=== PATIENT | male | born 1960 | race African-American/Black ===

== ENCOUNTER 2020-10-07 20:12 | Inpatient (IN) | payer OTHER, SELFPAY ==
[~2020-10-07] VITALS: Ht 182.9 cm; Wt 88.5 kg
[2020-10-07 20:19] VITALS: BP_SYST 174
--- NOTE | 2020-10-07 20:47 | NUR ---
RECEIVED AND IN ROOM 5, PT ANXIOUS AND PACING
--- NOTE | 2020-10-07 20:56 | NUR ---
PMH KIDNEY TRANSPLANT 2.5 YEARS AGO. RECENT "GAS " DISCOMFORT. RESTLESS AND ANXIOUS
--- NOTE | 2020-10-07 21:17 | NUR ---
UA AND BLOOD OBTAINED
[2020-10-07 21:23] LABS: BILIRUBIN,URINE NEGATIVE (NEGATIVE); BLOOD, URINE 3+ (NEGATIVE); CLARITY/URINE CLEAR (CLEAR); COLOR,URINE STRAW (YELLOW); GLUCOSE,URINE NEGATIVE (NEGATIVE); KETONES,URINE NEGATIVE (NEGATIVE); LEUKOCYTE ESTERASE ,URINE NEGATIVE (NEGATIVE); NITRITE, URINE NEGATIVE (NEGATIVE); PH,URINE 6.5 (5.0-8.0); PROTEIN URINE 1+ (NEGATIVE); UROBILINOGEN,URINE 0.2 (0.2-1.0)
[2020-10-07 21:27] LABS: BASOPHILS % (AUTO) 0.4 % (0.0-2.0); EOSINOPHILS # (AUTO) 0.1 K/uL (0.0-0.4); EOSINOPHILS % (AUTO) 0.6 % (0.0-4.0); HEMATOCRIT 35.5 % (36-54); HEMOGLOBIN 12.8 g/dL (14.0-18.0); LYMPHOCYTES # (AUTO) 1.2 K/uL (1.0-5.5); LYMPHOCYTES % (AUTO) 12.4 % (20.5-51.5); MEAN CORPUSCULAR HEMOGLOBIN 29 pg (27-31); MEAN CORPUSCULAR HGB CONC 36 % (32-36); MEAN CORPUSCULAR VOLUME 81 fL (79.0-98.0); MONOCYTES # (AUTO) 0.8 K/uL (0.0-1.0); MONOCYTES % (AUTO) 7.9 % (1.7-9.3); NEUTROPHILS # (AUTO) 7.7 K/uL (1.8-7.7); NEUTROPHILS % (AUTO) 78.7 % (40.0-70.0); PLATELET COUNT (AUTO) 192 K/uL (130-430); RED BLOOD CELL COUNT(AUTO) 4.36 MIL/uL (4.2-6.2); RED CELL DISTRIBUTION WIDTH 13.3 % (9.0-15.0); WHITE BLOOD COUNT (AUTO) 9.8 K/uL (4.8-10.8)
[2020-10-07 21:33] LABS: RBC,URINE 0-3 /HPF (0-3); WBC,URINE 0-3 /HPF (0-3)
[2020-10-07 21:34] LABS: BACTERIA,URINE FEW /HPF (None Seen); CALCIUM OXALATE CRYSTALS,UR None Seen /HPF (None Seen); CALCIUM PHOSPHATE CRYSTALS,UR None Seen /HPF (None Seen); COARSE GRANULAR CASTS,URINE None Seen /LPF (None Seen); FINE GRANULAR CASTS,URINE None Seen /LPF (None Seen); HYALINE CASTS, URINE None Seen /LPF (None Seen); MUCUS,URINE None Seen /LPF (None Seen); OTHER CASTS, URINE None Seen /LPF (None Seen); OTHER CRYSTALS,URINE None Seen /HPF (None Seen); TRICHOMONAS,URINE None Seen /HPF (None Seen); TRIPLE PHOSPHATE CRYSTAL,UR None Seen /HPF (None Seen); URIC ACID CRYSTALS,URINE None Seen /HPF (None Seen); URINE AMORPHOUS PHOSPHATES None Seen /HPF (None Seen); URINE AMORPHOUS URATE None Seen /HPF (None Seen); WAXY CASTS,URINE None Seen /LPF (None Seen); YEAST,URINE None Seen /HPF (None Seen)
[2020-10-07 21:46] LABS: CALCIUM 8.9 mg/dL (8.4-11.0); CREATININE 1.5 mg/dL (0.55-1.30); POTASSIUM 5.3 mmol/L (3.5-5.1)
--- NOTE | 2020-10-07 21:48 | NUR ---
DR STRAUSS IN TO ASSESS
[2020-10-07] MEDS ORDERED: NACL 0.9% 1,000 ML IV ONE (22:00)
[2020-10-07 22:03] LABS: TOTAL BILIRUBIN 0.9 mg/dL (0.0-1.0)
[2020-10-07 22:04] LABS: ALBUMIN 3.7 g/dL (3.4-4.8)
--- NOTE | 2020-10-07 22:06 | NUR ---
COVID SWAB COLLECTED AND SENT TO LAB.
--- NOTE | 2020-10-07 22:12 | NUR ---
UPDATE TO [facility] [phone]
--- NOTE | 2020-10-07 22:25 | NUR ---
DR BYRNE IN TO ASSESS
[2020-10-07 22:42] LABS: BARBITURATE, URINE NEGATIVE (NEG <=200); BENZODIAZEPINE, URINE NEGATIVE (NEG <=150); COCAINE, URINE NEGATIVE (NEG <=150); METHAMPHETAMINES SCREEN,URINE NEGATIVE (NEG <=500); URINE AMPHETAMINE NEGATIVE (NEG <=500); URINE METHADONE NEGATIVE (NEG <=200)
[2020-10-07 22:43] LABS: CANNABINOID, URINE POSITIVE (NEG <=50); OPIATE, URINE NEGATIVE (NEG <=100); PHENCYCLIDINE SCREEN,URINE NEGATIVE (NEG <=25); UR TRICYCLIC ANTIDEPRESSANTS NEGATIVE (NEG <=300); URINE OXYCODONE SCREEN NEGATIVE (NEG <=100); URINE PROPOXYPHENE SCREEN NEGATIVE (NEG <=300)
[2020-10-07] MEDS ORDERED: LORazepam 2 MG/ML VIAL IVP ONE (22:45)
[2020-10-07 22:49] LABS: CALCIUM 9.1 mg/dL (8.4-11.0); CREATININE 1.4 mg/dL (0.55-1.30); POTASSIUM 5.3 mmol/L (3.5-5.1)
--- NOTE | 2020-10-07 23:00 | NUR ---
REPORT RECEIEVED FROM JONO HUYNH. SPOKE TO DAUGHTER AISHWARYA) [phone].
--- NOTE | 2020-10-07 23:30 | NUR ---
Patient will be admitted to care of [facility]. Admitted to TELE unit. PENDING ROOM ASSIGNMENT. Belongings list completed. Complete and up to date summary report printed. SBAR report to be given at bedside with opportunity for questions.
[2020-10-07] MEDS ORDERED: NACL 0.9% 1,000 ML IV SCH (23:45)
--- NOTE | 2020-10-08 00:25 | NUR ---
ADMISSION: The patient, VIET HAMILTON, 60 y/o, M admitted by KANDI VILLAR MD, was given written information regarding hospital policies, unit procedures and contact persons. Valuables were checked and pt was oriented to his room and surrounding.
--- NOTE | 2020-10-08 00:30 | NUR ---
Transfer to TELE via ACLS protocol. Licensed nurse present. IV present no signs or symptoms of infiltration.
--- NOTE | 2020-10-08 00:35 | NUR ---
PT INCONTINENT WITH LARGE AMOUNT OF YELLOWISH URINE. INCONTINENT CARE PROVIDED BY RN AND NETWORKING ADMINISTRATOR.
--- NOTE | 2020-10-08 00:39 | NUR ---
UPDATED REGARDING STAYING HERE AT THE HOSPITAL.
[2020-10-08 00:56] VITALS: BP_SYST 137
[2020-10-08] MEDS ORDERED: HYDROcodone/ACETAMIN 5-325 MG TAB (NORCO/ VICODIN) PO PRN (04:15)
[2020-10-08] MEDS ORDERED: HYDROcodone/ACETAMIN 10-325 MG TAB PO PRN (04:15)
[2020-10-08] MEDS ORDERED: NALOXONE HCL 0.4 MG/ML AMP (NARCAN) IVP PRN ×2 (04:15)
[2020-10-08] MEDS ORDERED: ACETAMINOPHEN 325 MG TABLET PO PRN ×2 (04:15→11:30)
[2020-10-08] MEDS ORDERED: ONDANSETRON HCL 4 MG/2 ML VIAL IVP PRN (04:15)
[2020-10-08] MEDS ORDERED: LORazepam 2 MG/ML VIAL IVP PRN (04:15)
--- NOTE | 2020-10-08 04:27 | NUR ---
PT TRANSFERRED FROM TELE TO MED/SURG PER MD'S ORDER. PHOTOENGRAVING FINISHER GIVEN TO HOTEL FRONT DESK CLERK.
[2020-10-08] MEDS: D5NS 1,000 ML IV SCH ×2 (04:37→17:44)
--- NOTE | 2020-10-08 06:30 | NUR ---
PT REMAINS DROWSY AND RESTING COMFORTABLY IN BED. NO RESPIRATORY DISTRESS NOTED. ALL PT'S NEEDS WERE ATTENDED TO. IVF IS INFUSING WELL IN . WILL ENDORSE TO DAY SHIFT NURSE.
[2020-10-08 07:40] VITALS: BP_SYST 129
--- NOTE | 2020-10-08 07:40 | NUR ---
OPENING NOTE Patient resting in the bed. No acute distress. Denied of pain. skin warm and dry to touch. IV intact to left hand, no redness, no swelling, no drainage. On D5 NS at 100ml/hr, infusing well. Discussed the safety issue, use call light when needs help, and plan of care, verbally understanding. Safety measure maintained. Call light within reached. Bed locked in low position, side rails up, bed alarm on. Will continue to monitor.
--- NOTE | 2020-10-08 08:15 | NUR ---
CONSULTATION PAGED/CALLED Reason for Consultation: HYPONATREMIA Person Who was Notified: YSABEL Consulting Physician: JAMES Pipe Fitter Welding Specialty: Ordering Physician: JIAN
--- NOTE | 2020-10-08 09:03 | NUR ---
CONSULTATION PAGED/CALLED Reason for Consultation: TRANSAMINITIS Person Who was Notified: VINCENT Consulting Physician: JESSI LOAN DOCUMENTS CLOSER Baggage Agent Specialty: GASTRO Ordering Physician: JIAN
--- NOTE | 2020-10-08 09:24 | NUR ---
CM note: late entry: faxed transfer ordered to network request and ED note, labs to [facility]/dept. Then called to notify rei Ledbetter by Ajay/ERICA.
--- NOTE | 2020-10-08 10:55 | NUR ---
HOME MED LIST Patient's daughter brought home med bottle but not completed per patient. Called to add the medication left at home.
--- NOTE | 2020-10-08 11:56 | NUR ---
LEAD INJECTION MOLD TECHNICIAN completed a letter of hospital admission for Pt. per request and delivered to Seasonal Sales Associate who will provide the letter to Pt.
[2020-10-08 12:11] VITALS: BP_SYST 149
[2020-10-08] MEDS ORDERED: VITD2000 PO (12:48)
[2020-10-08] MEDS ORDERED: LIP10 PO (12:48)
[2020-10-08] MEDS ORDERED: MAGN400T10 PO (12:48)
[2020-10-08] MEDS ORDERED: CALC0.253 PO (12:48)
[2020-10-08] MEDS ORDERED: LOSA25TA3 PO (12:48)
[2020-10-08] MEDS ORDERED: SODI650T PO (12:48)
[2020-10-08] MEDS ORDERED: CEL250 PO (12:48)
[2020-10-08] MEDS ORDERED: TAMS-11 PO (12:48)
[2020-10-08] MEDS ORDERED: PRED5TAB PO (12:48)
[2020-10-08] MEDS ORDERED: VITA-285 PO (12:48)
[2020-10-08 16:40] VITALS: BP_SYST 125
--- NOTE | 2020-10-08 16:45 | NUR ---
SABRA NAVARRO Received the magali from Sabra Navarro to update the patient's condition, lab and imaging result. Per Melanie requested faxed the US of abdomen result. . Will call back when bed available.
--- NOTE | 2020-10-08 17:25 | NUR ---
SEEN AND EXAMINED BY KANDI REYES.
--- NOTE | 2020-10-08 18:00 | NUR ---
RECEIVED CALL FROM MARGARET PINZON REGARDING THE CURRENT LAB RESULT. ELAINE PINZON NEEDS TO FAX THE BMP RESULT BEFORE ACCEPT THE PATIENT TO TRANSFER.
--- NOTE | 2020-10-08 18:25 | NUR ---
SEEN AND EXAMINED BY MIRLANDE GARDNER.
--- NOTE | 2020-10-08 18:52 | NUR ---
CLOSING NOTE Patient resting in the bed. No acute distress. Denied of pain. skin warm and dry to touch. IV intact to left hand, no redness, no swelling, no drainage. On D5 NS at 100ml/hr, infusing well. Discussed the safety issue, use call light when needs help, and plan of care, verbally understanding. Safety measure maintained. Call light within reached. Bed locked in low position, side rails up, bed alarm on. Will endorse to night nurse.
[2020-10-08 18:55] LABS: PROTHROMBIN TIME 10.2 SECS (9.5-12.5)
[2020-10-08 19:07] LABS: ALANINE AMINOTRANSFERASE 254 U/L (12-78); ALBUMIN 3.5 g/dL (3.4-4.8); ANION GAP 7 (5-15); ASPARTATE AMINOTRANSFERASE 662 U/L (10-37); CALCIUM 9.2 mg/dL (8.4-11.0); CHLORIDE 98 mmol/L (98-107); GLUCOSE 136 mg/dL (70-99); POTASSIUM 4.9 mmol/L (3.5-5.1); SODIUM SERUM 133 mmol/L (136-145); TOTAL BILIRUBIN 0.6 mg/dL (0.0-1.0); UREA NITROGEN, BLOOD 16 mg/dL (8-21)
[2020-10-08 19:09] LABS: GFR AFRICAN AMERICAN 57 mL/min (>90)
--- NOTE | 2020-10-08 19:25 | NUR ---
CHANGE OF SHIFT; endorsed by day shift for possible transfer to [facility]. pending lab result ordered, told to fax it to [facility] per pillowcase sewer. pt. came in for hyponatremia.
[2020-10-08 19:35] LABS: CREATINE KINASE MB 30.9 ng/mL (0-3.6)
--- NOTE | 2020-10-08 20:00 | NUR ---
NOTES: lab result, Na 133 faxed to [facility]. pt. checked, awake, alert, denies any discmfort. IVF infusing. moves all extremities. emptied urinal. informed pt. for possible tranfer to [facility].
[2020-10-08 20:13] VITALS: BP_SYST 112
[2020-10-08] MEDS: mycophenolate mofetiL 250 MG CAPSULE PO SCH (21:49)
[2020-10-08] MEDS: SODIUM BICARBONATE 650 MG TABLET PO SCH (21:50)
[2020-10-08] MEDS: MAGNESIUM OXIDE 400 MG TABLET PO SCH (21:50)
--- NOTE | 2020-10-08 22:00 | NUR ---
NOTES; Dean has not called back, charge nurse aware, due medications given. pt. needs attended.
[2020-10-09] MEDS ORDERED: D5W 1,000 ML IV SCH
--- NOTE | 2020-10-09 | NUR ---
NOTES: Dr. Cardona called , Na result earlier 133, informed her that pt. was suppose to transfer to [place] but complex case manager did not call, faxed them the result. Dr. Cardona ordered stat BMP and changed IVf to D 5 W @ 100 cc/hr. [facility] nurse Karen aware of the situation.
--- NOTE | 2020-10-09 00:05 | NUR ---
NOTES: called lab for the stat lab.
--- NOTE | 2020-10-09 00:30 | NUR ---
NOTES: called again lab to follow up on the order, saying the tech is in ER and will come to draw ELIOT. charge nurse made aware.
--- NOTE | 2020-10-09 00:50 | NUR ---
NOTES: jose skilled laborer here and [facility] lab. IVF changed.
[2020-10-09 01:13] LABS: CALCIUM 8.1 mg/dL (8.4-11.0); CREATININE 1.47 mg/dL (0.55-1.30); POTASSIUM 4.3 mmol/L (3.5-5.1)
[2020-10-09 01:22] VITALS: BP_SYST 135
--- NOTE | 2020-10-09 01:55 | NUR ---
NOTES: called Dr. Cardona for the result of BMP, particularly Na 124, order to change IV to NS @ 80 cc/hr.
[2020-10-09] MEDS ORDERED: NACL 0.9% 1,000 ML IV SCH (02:00)
--- NOTE | 2020-10-09 02:48 | NUR ---
NOTES: pt. voided per urinal and pill the urine and get himself wet and bed linen, TRANSFORMER SHOP SUPERVISOR changed. IV changed to NS @ 80cc./hr as ordered.
--- NOTE | 2020-10-09 04:30 | NUR ---
NOTES: pt. called and feels he wants to have a BM, stand by assist to the restroom but false alarm. pt. able to ambulate ok, no dizziness.
--- NOTE | 2020-10-09 06:40 | NUR ---
CLOSING NOTES; IVF patent, no complaints noted. due for lab draw. for further assistance. call light within reach. will endorse to incoming shift.
[2020-10-09 07:35] LABS: BASOPHILS % (AUTO) 0.7 % (0.0-2.0); EOSINOPHILS # (AUTO) 0.1 K/uL (0.0-0.4); EOSINOPHILS % (AUTO) 1.2 % (0.0-4.0); HEMATOCRIT 30.1 % (36-54); HEMOGLOBIN 10.7 g/dL (14.0-18.0); LYMPHOCYTES # (AUTO) 1.1 K/uL (1.0-5.5); LYMPHOCYTES % (AUTO) 25.8 % (20.5-51.5); MEAN CORPUSCULAR HEMOGLOBIN 30 pg (27-31); MEAN CORPUSCULAR HGB CONC 36 % (32-36); MEAN CORPUSCULAR VOLUME 83 fL (79.0-98.0); MONOCYTES # (AUTO) 0.6 K/uL (0.0-1.0); MONOCYTES % (AUTO) 13.4 % (1.7-9.3); NEUTROPHILS # (AUTO) 2.4 K/uL (1.8-7.7); NEUTROPHILS % (AUTO) 58.9 % (40.0-70.0); PLATELET COUNT (AUTO) 150 K/uL (130-430); RED BLOOD CELL COUNT(AUTO) 3.62 MIL/uL (4.2-6.2); RED CELL DISTRIBUTION WIDTH 13.1 % (9.0-15.0); WHITE BLOOD COUNT (AUTO) 4.1 K/uL (4.8-10.8)
[2020-10-09 07:48] LABS: CALCIUM 8.5 mg/dL (8.4-11.0); CREATININE 1.55 mg/dL (0.55-1.30); PHOSPHORUS 3.3 mg/dL (2.7-4.5); POTASSIUM 4.4 mmol/L (3.5-5.1); TOTAL BILIRUBIN 0.5 mg/dL (0.0-1.0)
[2020-10-09 08:00] VITALS: BP_SYST 111
[2020-10-09] MEDS ORDERED: CHOLECALCIFEROL (VITAMIN D3) 2,000 UNIT TABLET PO SCH (09:00)
[2020-10-09] MEDS ORDERED: LOSARTAN POTASSIUM 25 MG TABLET PO SCH (09:00)
[2020-10-09] MEDS ORDERED: TAMSULOSIN HCL 0.4 MG CAP PO SCH (09:00)
[2020-10-09] MEDS ORDERED: VITAMIN B COMPLEX 1 CAP/TAB PO SCH (09:00)
[2020-10-09] MEDS: SODIUM BICARBONATE 650 MG TABLET PO SCH ×2 (09:00→20:57)
[2020-10-09] MEDS: MAGNESIUM OXIDE 400 MG TABLET PO SCH ×2 (09:00→20:57)
[2020-10-09] MEDS ORDERED: calcitrioL 0.25 MCG CAPSULE PO SCH (09:00)
[2020-10-09] MEDS: mycophenolate mofetiL 250 MG CAPSULE PO SCH ×2 (09:00→20:57)
[2020-10-09] MEDS ORDERED: ATORVASTATIN 10 MG TABLET PO SCH (09:00)
[2020-10-09] MEDS ORDERED: predniSONE 5 MG TABLET PO SCH (09:00)
--- NOTE | 2020-10-09 09:28 | NUR ---
MARGARET note: s/w [facility] dept, f/u on the transfer request. Per Zuly , she will contact to call me back. Updated clinicals and resent the transfer order to fax # [phone] anne Caruso. Addendum: 10/09/20 at 1656 by Andreina Fermin RN Late entry: called to [facility] to f/u on the transfer decision: per ERICA Moss s/w the [place] transfer ctr x2/Gael , software configuration analyst said the case is being reviewed. No further transfer info received. -- madyd Molina made aware.
[2020-10-09 12:00] VITALS: BP_SYST 120
[2020-10-09 13:21] LABS: ALANINE AMINOTRANSFERASE 221 U/L (12-78); ALBUMIN 3.4 g/dL (3.4-4.8); ANION GAP 8 (5-15); ASPARTATE AMINOTRANSFERASE 449 U/L (10-37); CALCIUM 8.9 mg/dL (8.4-11.0); CHLORIDE 95 mmol/L (98-107); GLUCOSE 108 mg/dL (70-99); LIPASE 137 U/L (73-393); POTASSIUM 4.4 mmol/L (3.5-5.1); SODIUM SERUM 131 mmol/L (136-145); TOTAL BILIRUBIN 0.5 mg/dL (0.0-1.0); UREA NITROGEN, BLOOD 19 mg/dL (8-21)
[2020-10-09 14:33] LABS: CREATININE 1.55 mg/dL (0.55-1.30); GFR AFRICAN AMERICAN 59 mL/min (>90)
[2020-10-09 16:00] VITALS: BP_SYST 118
--- NOTE | 2020-10-09 19:10 | NUR ---
OPENING NOTES PATIENT RESTING, NO SIGNS OF DISTRESS AT THIS TIME. CALL LIGHT WITHIN REACH, PATIENT DEMONSTRATES PROPER CALL LIGHT USAGE THROUGHOUT SHIFT. BED LOCKED, BED AT LOWEST POSITION, BED LOCKED. FALL, RESPIRATORY, ASPIRATION, AND SAFETY PRECAUTIONS IN PLACE. PLAN OF CARE DISCUSSED WITH PATIENT. WILL CONTINUE TO MONITOR. WILL SPEAK TO PATIENT ABOUT MEDICATIONS AT BEDSIDE.
--- NOTE | 2020-10-09 20:00 | NUR ---
SPOKE TO PATIENT, PATIENT NERVOUS ABOUT HAVING PHARMACY MEDICAL TRANSCRIPTION RADIOLOGY MEDICATION AND POSSIBLY LOSING MEDICATIONS. EXPLANATION OF KEEPING AT MEDICATION EXPLAINED AND REASSURED PATIENT THAT DAUGHTER CAN MEDICAL TRANSCRIPTION RADIOLOGY MEDICATION IN THE MORNING.
[2020-10-09 20:23] LABS: CREATINE KINASE MB 10.6 ng/mL (0-3.6)
--- NOTE | 2020-10-09 20:39 | NUR ---
SPOKE TO MARY [phone], NOTIFIED OF THAT PATIENT'S TOTAL CREATININE KINASE IS STILL ABOVE 1000 AND CK-MB IS 10.6. MARY SAYS THAT SHE WILL NOTIFY THE DOCTORS AND FELLOW DELINQUENT TAX COLLECTOR ASSISTANT AND WILL CALL US BACK FOR UPDATES.
[2020-10-10] VITALS: BP_SYST 114
[2020-10-10 01:38] VITALS: BP_SYST 114
--- NOTE | 2020-10-10 02:00 | NUR ---
SPOKE TO JONO JAMA [phone], PRVIDED SBAR OF PATIENT. EVITA STATES THAT THEY WOULD LIKE TO KEEP THE IV ACCESS FOR PATIENT. WILL CONTINUE TO MONITOR.
--- NOTE | 2020-10-10 03:13 | NUR ---
D/C Patient Patient given medication reconciliation form and D/C instructions. Exit Care provided. Patient verbalized understanding. MD discussed with patient the results and treatment provided. Ambulatory with steady gait for transfer to [facility]. Patient in stable condition, ID band removed. IV catheter kept, intact, saline lock. Patient educated on pain management. All belongings including patient's medications sent with patient.
[2020-10-10 08:06] LABS: HEPATITIS A AB, IgM Negative (Negative); HEPATITIS B CORE AB, IgM Negative (Negative); HEPATITIS B SURFACE AG Negative (Negative)
[2020-10-10 10:36] LABS: FERRITIN 1710 ng/mL (30-400)
--- NOTE | 2020-10-11 10:33 | NUR ---
Disposition 02
[2020-10-12 10:06] LABS: ANTI NUCLEAR AB WITH REFLEX Negative (Negative)
[2020-10-12 11:07] LABS: CERULOPLASMIN 29.7 mg/dL (16.0-31.0)
[2020-10-13 11:06] LABS: ANTI-SMOOTH MUSCLE AB 9 Units (0-19)
== END 2020-10-10 03:13 | disposition short-term general hospital (02) | DRG 640 ==
LOC: SED 20:12 → STU 23:33 → SMU 10-08 04:27
PROVIDERS: ADMIT Preventive Medicine Preventive Medicine/Occupational Environmental Medicine; ATTEND Preventive Medicine Preventive Medicine/Occupational Environmental Medicine
DX: E87.1 Hypo-osmolality and hyponatremia (principal); N18.6 End stage renal disease; K72.00 Acute and subacute hepatic failure without coma; T86.19 Other complication of kidney transplant; N17.9 Acute kidney failure, unspecified; M62.82 Rhabdomyolysis; I12.0 Hypertensive chronic kidney disease with stage 5 chronic kidney disease or end stage renal disease; E87.5 Hyperkalemia; R73.9 Hyperglycemia, unspecified; Z20.822 Contact with and (suspected) exposure to COVID-19; E87.8 Other disorders of electrolyte and fluid balance, not elsewhere classified; R74.01 Elevation of levels of liver transaminase levels; D72.819 Decreased white blood cell count, unspecified; D64.9 Anemia, unspecified; Y83.0 Surgical operation with transplant of whole organ as the cause of abnormal reaction of the patient, or of later complication, without mention of misadventure at the time of the procedure; Z99.2 Dependence on renal dialysis; Z86.19 Personal history of other infectious and parasitic diseases
CPT/HCPCS: 36415; 76700-TC; 80048; 80053; 80074; 80307; 81000; 82140; 82390; 82550; 82553; 82728; 82977; 83516; 83690; 83735; 84100; 85025; 85610-TC; 86038; 87081; 96361; 96374; 99285; G0378; J2060; J7517